=== PATIENT | female | born 1990 | race Caucasian/White ===

== ENCOUNTER 2018-01-07 12:58 | Day surgery (SDC) | payer OTHER ==
[2018-01-07 13:31] VITALS: BMI 39.1
--- NOTE | 2018-01-07 15:11 | SS ---
DATE OF EVALUATION: 01/07/2018 EVALUATING PHYSICIAN: John May M.D. ATTENDING PHYSICIAN: Donna Gee D.O. CHIEF COMPLAINT: Contractions at home. HISTORY OF PRESENT ILLNESS: Ms. Hankins is a 27-year-old white G2, P1-0-0-1, estimated date of conf inement of 01/12/2018 who presents complaining of intermittent contractions since early this morning. She denies ruptured membranes or vaginal bleeding. Of note is the fact that she has an induction s cheduled later next week with Dr. Gee. It appears that Dr. Gee may have stripped her membranes in the office late last week. PAST OBSTETRICAL HISTORY: Remarkable for a term vaginal delivery that was reportedly complicated by hemorrhage. PAST MEDICAL HISTORY: Herpes for which she is currently on acyclovir. CURRENT MEDICATIONS: vitamins and acyclovir. PAST SURGICAL HISTORY: None. ALLERGIES: No known allergies. SOCIAL HISTORY: She denies tobacco or alcohol use. REVIEW OF SYSTEM: She denies nausea, vomiting, fever, chills, vaginal bleeding or ruptured membranes . PHYSICAL EXAMINATION: VITAL SIGNS: Stable. She is afebrile. ABDOMEN: Soft, gravid and nontender. PELVIC EXAM: By the nurse shows her to be 1-2 cm with a vertex presenting which is apparently unchan ged from her exam in the office. heart rate tracing shows good beat to beat variability with n o decelerations. An occasional uterine contraction is seen, no regular contractions are noted. ASSESSMENT: 1. Term intrauterine . 2. No evidence of active labor. PLAN: At this time, the patient will be allowed to go home and rest. She was given complete labor p recautions and was told to return for frequent contractions, vaginal bleeding or decreased move ment. She voiced understanding of her discharge instructions and was sent home in good condition.
== END 2018-01-07 14:26 ==
LOC: L&D/OP 12:58
PROVIDERS: ATTEND Obstetrics & Gynecology
DX: O47.1 False labor at or after 37 completed weeks of gestation (principal); O98.513 Other viral diseases complicating pregnancy, third trimester; B00.9 Herpesviral infection, unspecified; Z79.2 Long term (current) use of antibiotics; Z79.899 Other long term (current) drug therapy; Z3A.00 Weeks of gestation of pregnancy not specified
CPT/HCPCS: 99283

== ENCOUNTER 2018-01-12 06:44 | Inpatient (IN) | payer OTHER ==
--- NOTE | 2018-01-11 19:46 | PDOC.LDHP ---
Labor and Delivery H&P Chief complaint: scheduled induction HPI: 27 yo @ 40w0d by 12 week sono who presents for elective IOL. Anteparturm course benign. Pt has h/o HSV, on valtrex for suppression and denies prodromal sx. Pt has h/o PPH with prior delivery s/p prolonged IOL. Current gestational age (weeks): 40 Due date: 01/12/18 Dating criteria: first trimester ultrasound Grav: 2 Para: 1 OB History Details: Term with PPH 2013 (due to prolonged labor?) Current complications: none, other (anemia) Abnormal US findings: No Current medications: pre-ramírez vitamins, iron Previous surgical history: none Allergies/Adverse Reactions: Allergies Allergy/AdvReac Type Severity Reaction Status Date / Time No Known Drug Allergies Allergy Unverified 07/10/16 15:41 Social history: none - Physical Exam Vital signs reviewed and normal: yes General: NAD Heart: RRR Lungs: nonlabored breathing Abdomen: gravid Extremeties: no edema FHT: category 1 (130s, mod libertad, +accels, no decels) [place] contractions every: irregular - Vaginal Exam cm dilated: 3 (cephalic, AROM clear ) Effacement: 50% Station: -2 - OB Labs Blood type: O RH: positive Antibody Screen: negative HIV: negative RPR: negative HEPSAg: negative 1 hour GCT: negative GBS: negative Urine drug screen: not done Rubella: non-immune Additional Labs: SSQ negative PPH work up negative - Assessment 40 week IUP Elective IOL Anemia H/O HSV H/O PPH - Plan Plan: admit to L&D, informed consent obtained, anesthesia consult for pain management -: Start pitocin for IOL No sx of HSV Anemia improved. Will plan to have uterotonics available at delivery.
[2018-01-12] MEDS ORDERED: Promethazine HCl 25 MG/ML VIAL IM PRN ×2 (07:07→11:30)
[2018-01-12] MEDS ORDERED: Diphenoxylate HCl/Atropine Tablet PO PRN (07:07)
[2018-01-12] MEDS ORDERED: Ibuprofen 800 MG TAB PO PRN (07:07)
[2018-01-12] MEDS ORDERED: Misoprostol 200 MCG TAB PR PRN (07:07)
[2018-01-12] MEDS ORDERED: Ondansetron HCl/PF 4 MG/2 ML Vial IVP PRN ×2 (07:07→11:30)
[2018-01-12] MEDS ORDERED: HYDROcodone/Acetaminophen 5/325 mg Tablet PO PRN (07:07)
[2018-01-12] MEDS ORDERED: Carboprost 250 MCG/ML AMP IM PRN (07:07)
[2018-01-12] MEDS ORDERED: LR 500 ML/Oxytocin 10 units 500 ML IV SCH (07:07)
[2018-01-12] MEDS ORDERED: Lidocaine 1% (PF) 30 ML VIAL SC PRN (07:07)
[2018-01-12] MEDS ORDERED: Methylergonovine 0.2 MG/ML VIAL IM PRN (07:07)
[2018-01-12] MEDS ORDERED: Acetaminophen 500 MG TAB PO PRN (07:07)
[2018-01-12] MEDS ORDERED: LR / Pitocin 40 units/1000 ml 1,000 ML IV PRN (07:07)
[2018-01-12 07:14] VITALS: BMI 40.9
[2018-01-12] MEDS: Lactated Ringer's 1,000 ML IV SCH ×4 (07:30→21:03)
[2018-01-12 07:52] LABS: Hemoglobin 11.8 g/dL (12.0-16.0); Mean Corpuscular HGB CONC 32.3 g/dL (32.0-36.0); Mean Corpuscular Hemoglobin 26.8 pg (27.0-31.0); Mean Corpuscular Volume 82.7 fl (81.0-99.0); Mean Platelet Volume 7.6 fL (7.4-10.4); Platelet Count 256 thou/uL (130-400); RBC Distribution Width 18.6 % (11.5-14.5); Red Blood Cell (RBC) Count 4.42 mill/uL (4.20-5.40); White Blood Cell (WBC) Count 13.8 thou/uL (4.8-10.8)
[2018-01-12 08:33] LABS: HBSAg Index 0.12 S/CO (0-0.99); HIV (1/2) Antibody/Antigen Non-Reactive (NonReactive); HIV 1/2 INDEX 0.05 S/CO (<1.00); Hep B Surf Ag Non-Reactive S/CO (NonReactive); Syphilis Antibody Nonreactive (Nonreactive); Syphilis Antibody Index 0.04 S/CO (<1.00 Non-Reactive)
[2018-01-12] MEDS ORDERED: Bupivacaine 0.5% 20 ML, fentaNYL Citrate/PF 400 MCG in Sodium Chloride 0.9% 72 ML EPIDURAL SCH (09:45)
[2018-01-12] MEDS ORDERED: DISCONTINUE ALL PREVIOUS NARCOTICS FS SCH (09:45)
[2018-01-12] MEDS ORDERED: Bupivacaine 0.75% W/DEXTROSE 8.25% 2 ML AMP ONE (10:01)
[2018-01-12] MEDS ORDERED: Bupivacaine 0.5% 10 ML VIAL ONE (11:06)
[2018-01-12] MEDS ORDERED: Fentanyl 100 MCG/2 ML VIAL ONE (11:06)
[2018-01-12] MEDS ORDERED: Fentanyl 100 MCG/2 ML VIAL I-THECAL ONE (11:29)
[2018-01-12] MEDS ORDERED: ePHEDrine/0.9% NaCl/PF SYRINGE 50 mg/10 ml SLOW IVP PRN (11:30)
[2018-01-12] MEDS ORDERED: Lactated Ringer's 500 ML IV PRN (11:30)
[2018-01-12] MEDS ORDERED: Fentanyl 4mcg/Marcaine 0.1% Cassette 100 ML EPIDURAL SCH (11:30)
[2018-01-12] MEDS ORDERED: Acetaminophen 325 MG TAB PO PRN (11:30)
[2018-01-12] MEDS ORDERED: Communication Order-Pharmacy FS SCH (11:30)
[2018-01-12] MEDS ORDERED: diphenhydrAMINE 50 MG/ML VIAL IVP PRN (11:30)
[2018-01-12] MEDS ORDERED: Eucerin (Mineral Oil/Petrolatum,White) 30 gm Jar TOP PRN (11:30)
[2018-01-12] MEDS ORDERED: Naloxone HCl 0.4 mg/ml Vial IVP PRN ×2 (11:30)
[2018-01-12] MEDS ORDERED: Bupivacaine 0.5% 10 ML VIAL EPIDURAL ONE (11:31)
[2018-01-12] MEDS ORDERED: diphenhydrAMINE 50 MG/ML VIAL IVP SCH (14:00)
--- NOTE | 2018-01-12 21:27 | PDOC.OPDEL ---
OB Operative/Delivery Note Delivery Dr/Surgeon: Donna Gee DO Pre-Delivery Diagnosis: elective induction Procedure/Post Delivery Dx: spontaneous vaginal delivery Weeks gestation: 39 Anesthesia: epidural - Findings A Sex: male - 1 min: 8 - 5 min: 9 - Additional Findings/Plan Placenta delivered: spontaneous Repaired Obstetrical Laceration: other (bilateral labials repaired) Estimated blood loss: 500 cc Compilations/Other Findings: Infant in cephalic presentation, CALDERON position. Methergine and cytotec given due to atony with resolution of bleeding/atony. Post delivery plan: routine recovery
[2018-01-13] MEDS ORDERED: Bisacodyl 10 MG SUPP PR PRN (00:03)
[2018-01-13] MEDS ORDERED: Methylergonovine 0.2 MG/ML VIAL IM PRN (00:03)
[2018-01-13] MEDS ORDERED: Milk Of Magnesia 30 ML UDCUP PO PRN (00:03)
[2018-01-13] MEDS ORDERED: Benzocaine/Menthol 20-0.5% 60 ML CAN TOP PRN (00:03)
[2018-01-13] MEDS ORDERED: LR / Pitocin 40 units/1000 ml 1,000 ML IV SCH (00:03)
[2018-01-13] MEDS ORDERED: Preparation H Ointment 28 GM TUBE PR PRN (00:03)
[2018-01-13] MEDS: Misoprostol 200 MCG TAB VAG SCH (00:37)
[2018-01-13] MEDS: Ibuprofen 800 MG TAB PO SCH ×3 (00:37→21:36)
[2018-01-13] MEDS: traMADol HCl 50 MG TAB PO PRN ×2 (03:34→20:25)
[2018-01-13 06:23] LABS: #Eosinphils 0.1 thou/uL (0.0-0.7); #Lymphocytes 1.9 thou/uL (1.20-3.40); #Monocytes 1.3 thou/uL (0.11-0.59); #Neutrophils 13.9 thou/uL (1.40-6.50); %Basophils 0.1 % (0.0-1.0); %Eosinophils 0.8 % (0.0-10.0); %Lymphocytes 10.9 % (21.0-51.0); %Monocytes 7.4 % (0.0-10.0); %Neutrophils 80.8 % (42.0-75.0); Anisocytosis SLIGHT = 6-15 cells (100X) (0-5/hpf); Band 7 % (5-11); Hemoglobin 10.3 g/dL (12.0-16.0); Lymphocytes 14 % (21-51); MDiff Complete? YES; Mean Corpuscular HGB CONC 32.1 g/dL (32.0-36.0); Mean Corpuscular Hemoglobin 26.8 pg (27.0-31.0); Mean Corpuscular Volume 83.5 fl (81.0-99.0); Mean Platelet Volume 7.8 fL (7.4-10.4); Monocytes 3 % (0-10); Neutrophil 74 % (42-75); Ovalocytes SLIGHT = 2-5 cells (100X) (0-1/hpf); PLT Morphology Comment Appears Adequate; Platelet Count 208 thou/uL (130-400); RBC Distribution Width 18.5 % (11.5-14.5); Reactive Lymphocytes 2 % (0-10); Red Blood Cell (RBC) Count 3.86 mill/uL (4.20-5.40); White Blood Cell (WBC) Count 17.2 thou/uL (4.8-10.8)
--- NOTE | 2018-01-13 08:53 | PDOC.PP ---
Post Progress Note Post Day #: 1 Subjective: Minimal lochia. Attempting to breast feed. No concerns. PO intake tolerated: yes Flatus: no Ambulation: yes Vital Signs (12 hours) Temp Pulse Resp BP 01/13/18 08:24 98.7 F 96 20 114/59 L 01/13/18 08:00 98.4 F 106 H 18 01/13/18 03:43 98.4 F 106 H 18 128/67 01/13/18 02:12 98.7 F 108 H 18 109/56 L 01/13/18 00:50 98.0 F 112 H 18 124/77 01/12/18 23:50 98.8 F 106 H 18 118/75 Weight Weight 231 lb - Physical Examination General: NAD Cardiovascular: RRR Respiratory: non-labored breathing Abdominal: no distention, appropriately TTP Deviation from normal: below umbilicus Extremities: negative homans (B) Neurological: no gross focal deficits Psychiatric: A&Ox3 Result Diagrams: 01/13/18 04:55 Additional Labs: Post Labs Blood Type O POSITIVE 01/12/18 07:49 Hep Bs Antigen Non-Reactive S/CO (NonReactive) 01/12/18 07:49 (1) Vaginal delivery Code(s): O80 - ENCOUNTER FOR FULL-TERM UNCOMPLICATED DELIVERY Status: Acute - Assessment/Plan PPD1 VSSAF Doing well. consult. Plan for d/c tomorrow due to late delivery. Anemia stable and no further heavy bleeding since delivery. Tachycardia has resolved.
[2018-01-13] MEDS ORDERED: Measles/Mumps/Rubella 10 MCG/0.5 ML VIAL SC ONE (09:00)
[2018-01-13] MEDS: Ferrous Sulfate 325 MG TAB PO SCH (09:19)
[2018-01-13] MEDS: Docusate Calcium (SURFAK) 240 MG CAP PO SCH ×2 (09:20→21:36)
[2018-01-13] MEDS: Prenatal Vitamin 1 TAB PO SCH (09:20)
[2018-01-14] MEDS: Ferrous Sulfate 325 MG TAB PO SCH ×2 (00:14→09:14)
[2018-01-14] MEDS: Misoprostol 200 MCG TAB VAG SCH (01:07)
--- NOTE | 2018-01-14 04:22 | PDOC.PP ---
Post Progress Note Post Day #: 2 Subjective: No new complaints PO intake tolerated: yes Flatus: yes Ambulation: yes Vital Signs (12 hours) Temp Pulse Resp BP 01/13/18 19:50 97.4 F L 96 20 120/66 01/13/18 17:54 98.3 F 92 20 122/74 Weight Weight 231 lb - Physical Examination General: NAD Cardiovascular: no m/r/g Respiratory: clear to auscultation bilaterally Abdominal: + bowel sounds, lochia, no distention, appropriately TTP Extremities: negative homans (B) Neurological: no gross focal deficits Psychiatric: A&Ox3, normal affect Result Diagrams: 01/13/18 04:55 Additional Labs: Post Labs Blood Type O POSITIVE 01/12/18 07:49 Hep Bs Antigen Non-Reactive S/CO (NonReactive) 01/12/18 07:49 (1) state Code(s): Z39.2 - ENCOUNTER FOR ROUTINE FOLLOW-UP Status: Acute (2) Vaginal delivery Code(s): O80 - ENCOUNTER FOR FULL-TERM UNCOMPLICATED DELIVERY Status: Acute - Assessment/Plan Doing well s/p on 01/12. Ok for discharge home. RX per Dr Fraire in chart. OB Summary form completed
--- NOTE | 2018-01-14 04:24 | PDOC.EVN ---
Event Note - Event Note Event Note: DISCHARGE NOTE Admit: 01/12/18 Discharge 01/14/18 Procedure: Vaginal delivery Patient seen by me on day of discharge. Please see completed OB summary sheet in record.
[2018-01-14] MEDS: Ibuprofen 800 MG TAB PO SCH (05:53)
[2018-01-14] MEDS: Prenatal Vitamin 1 TAB PO SCH (09:14)
[2018-01-14] MEDS: Docusate Calcium (SURFAK) 240 MG CAP PO SCH (09:14)
[2018-01-14] MEDS: traMADol HCl 50 MG TAB PO PRN (09:14)
[2018-01-14 09:47] VITALS: BP 109/68; TEMP 97.8
== END 2018-01-14 14:40 | disposition home or self-care (01) | DRG 775 ==
LOC: L&D 06:44 → 3SW 01-13 00:12
PROVIDERS: ADMIT Obstetrics & Gynecology; ATTEND Obstetrics & Gynecology
PROC: 10E0XZZ Delivery of Products of Conception, External Approach (ICD-10-PCS; principal; 2018-01-12)
PROC: 0HQ9XZZ Repair Perineum Skin, External Approach (ICD-10-PCS; 2018-01-12)
PROC: 10907ZC Drainage of Amniotic Fluid, Therapeutic from Products of Conception, Via Natural or Artificial Opening (ICD-10-PCS; 2018-01-12)
PROC: 3E033VJ Introduction of Other Hormone into Peripheral Vein, Percutaneous Approach (ICD-10-PCS; 2018-01-12)
DX: Z37.0 Single live birth; O70.0 First degree perineal laceration during delivery; Z3A.40 40 weeks gestation of pregnancy
CPT/HCPCS: 36415; 51702; 85025; 85027; 86780; 86850; 86900; 86901; 87340; 87389; 90707; J1200; J2001; J2210; J3010; J3490; J7050; J7120

== ENCOUNTER 2018-05-21 19:10 | Inpatient (IN) | payer MEDICAID, OTHER ==
[~2018-05-21 19:10] MED LIST: Glycopyrrolate 0.2 MG/ML 5 ML SYRINGE ONE; Lidocaine 1% PF 5 ML VIAL ONE; Ondansetron HCl/PF 4 MG/2 ML Vial ONE; PROPOFOL 200 MG/20 ML VIAL ONE; Succinylcholine Chloride 20 MG/ML 10 ml SYRINGE FS ONE
[2018-05-21] MEDS ORDERED: Ondansetron HCl/PF 4 MG/2 ML Vial ONE ×2 (19:20→19:44)
[2018-05-21 19:54] LABS: #Basophils 0.1 thou/uL (0.0-0.2); #Eosinphils 0.1 thou/uL (0.0-0.7); #Lymphocytes 4.1 thou/uL (1.20-3.40); #Monocytes 0.6 thou/uL (0.11-0.59); %Eosinophils 0.6 % (0.0-10.0); %Lymphocytes 34.5 % (21.0-51.0); %Monocytes 4.9 % (0.0-10.0); %Neutrophils 58.9 % (42.0-75.0); Mean Corpuscular HGB CONC 33.4 g/dL (32.0-36.0); Mean Corpuscular Hemoglobin 26.9 pg (27.0-31.0); Mean Corpuscular Volume 80.6 fL (78.0-98.0); Platelet Count 349 thou/uL (130-400); RBC Distribution Width 14.6 % (11.5-14.5); Red Blood Cell (RBC) Count 4.83 mill/uL (4.20-5.40); White Blood Cell (WBC) Count 11.8 thou/uL (4.8-10.8)
[2018-05-21 20:15] LABS: ALT (SGPT) 10 U/L (8-55); AST (SGOT) 10 U/L (5-34); Albumin 4.3 g/dL (3.5-5.0); Alkaline Phosphatase 73 U/L (40-150); Anion Gap 16 mmol/L (10-20); BUN (Urea Nitrogen) 12 mg/dL (7.0-18.7); Bilirubin, Total 0.2 mg/dL (0.2-1.2); Calc. Creatinine Clearance 0 mL/min (70-130); Calcium 9.4 mg/dL (7.8-10.44); Carbon Dioxide 24 mmol/L (22-29); Chloride 103 mmol/L (98-107); Estimated GFR-MDRD Greater than 90; Globulin 3.6 g/dL (2.4-3.5); Glucose 109 mg/dL (70-105); Lipase 22 U/L (8-78); Potassium 3.7 mmol/L (3.5-5.1); Protein, Total 7.9 g/dL (6.0-8.3); Sodium 139 mmol/L (136-145)
[2018-05-21 21:37] LABS: Bilirubin Negative (Negative); Blood, Urine Negative (Negative); Clarity CLEAR (Clear); Glucose, Urine (Dipstick) Negative (Negative); Leukocyte Negative (Negative); Nitrite Negative (Negative); Pregnancy Test - Urine (BHCG) Negative (Negative); Pregu Control Background? CLEAR/WHITE (CLR/WHITE); Pregu Control Bar Appear? YES (CONTROL BAR); Protein, Urine (Dipstick) Negative (Neg-Trace); Specific Gravity 1.025 (1.002-1.036); Specific Gravity, Urine 1.025 (1.002-1.036); Urobilinogen 0.2 mg/dL (0.2-1.0)
[2018-05-21] MEDS ORDERED: Piperacillin/Tazobactam 3.375 GM VIAL ONE (21:38)
[2018-05-21] MEDS ORDERED: Piperacillin/Tazobactam 4.5 GM VIAL ONE (21:41)
--- NOTE | 2018-05-21 21:42 | ULT ---
RIGHT UPPER QUADRANT ULTRASOUND: Date: 05-21-18 Comparison: None. History: Right upper quadrant pain. Technique: Multiplanar grayscale sonographic imaging of the right upper quadrant provided. FINDINGS: The imaged pancreas is unremarkable. The tail is obscured by bowel gas. No focal liver lesion or intr ahepatic biliary dilatation is noted. The gallbladder wall is thickened, measuring 6-7 mm. There are numerous stones within the gallbladder lumen. The finished carpet inspector reports a positive Goetz's sign. The common duct measures 5 mm, upper limits of normal. Right kidney measures 10.6 cm craniocaudal dimension and demonstrates no stone, hydroneph rosis or mass. IMPRESSION: Cholelithiasis with gallbladder wall thickening and positive Goetz's sign, consistent with acute cho lecystitis in the proper clinical setting. POS: [facility]
--- NOTE | 2018-05-21 23:01 | HP ---
DATE OF ADMISSION: 05/21/2018 HISTORY OF PRESENT ILLNESS: Ms. Hankins is a 27-year-old G2, P[facility]. Patient reported insidious onset epigastric to right upper quadrant abdominal pain, which started approximately 1800 hours, which was about 2 hours after dinner. Pain was rated at 10/10, huma cribed as sharp and associated with three bouts of nonbilious emesis. Patient denied any fevers or c hills. She reported similar pain approximately 1 month ago after eating as well. At that time, the pain resolved spontaneously and was not as severe as the pain which brought her to the emergency depa rtment today. PAST MEDICAL HISTORY: Patient denies any previous medical problems. PAST SURGICAL HISTORY: She denies any previous surgeries. 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 She admits to smoking 3 cigarettes a week. Admits to occasional intake of ethanol in moderate amounts and denies any illicit drug abuse. FAMILY HISTORY: Notable for diabetes mellitus in her mother. Maternal aunt has heart disease. Vari ous members of the extended family have essential hypertension in both sides of mother's side. There is no family history of cancer. PREHOSPITAL MEDICATION: Includes multiple vitamins and occasional ibuprofen. ALLERGIES: Patient denies any known drug allergies. REVIEW OF SYSTEMS: A 10-point review of systems essentially unremarkable except for as stated in pas t medical history and chief complaint. PHYSICAL EXAMINATION: GENERAL: This reveals a 27-year-old normally developed woman who is 4 months' . Patient a ppears to be in no acute distress at the time of my evaluation. VITAL SIGNS: Includes blood pressure 125/55, pulse 74, respiratory rate is 16, temperature 98.3 degr ees Fahrenheit, oxygen saturation is 98% on room air. HEENT: Reveals normocephalic and atraumatic. Pupils are equal, round, and reactive to light and acc ommodation. Extraocular muscles are intact bilaterally. No sclerae icterus is present. Oral mucosa is pink and moist. No lesions are noted. NECK: Supple. No palpable lymphadenopathy or thyromegaly present. CARDIOVASCULAR: Reveals regular rate and rhythm. No murmurs or gallops auscultated. LUNGS: Clear to auscultation bilaterally. Breathing regular and unlabored. ABDOMEN: Soft and moderately distended . Patient has moderate right upper quadrant tender ness to palpation. She has no gross rebound tenderness present. EXTREMITIES: Reveals 2+ radial and pedal pulses bilaterally. No ankle edema present. NEUROLOGIC: Reveals no focal deficits present. PERTINENT LABORATORY FINDINGS: Today include a CBC with 11,800 white blood cells, hemoglobin and hem atocrit 13.0 and 38.9 respectively, platelet count is 249,000. Metabolic profile: Sodium 139, potas sium is 3.7, chloride is 103, bicarbonate is 24, BUN 12, creatinine 0.73, glucose 109. Total bilirub in 0.2, AST and ALT are both normal at 10 and 10 respectively. Serum lipase is also normal at 22. I have personally reviewed abdominal ultrasound, which is remarkable for multiple intraluminal gallsto marti. The patient has gallbladder wall thickening at 6.6 mm. Common bile duct is dilated for this pa tient's age at 5.2 mm in diameter. IMPRESSION: 1. Acute cholecystitis with cholelithiasis. 2. Rule out choledocholithiasis. Above findings and plan has been discussed with the patient, her and her mother at bedside. They indicate understanding of information provided. I have offered the patient two options: one is conservative management with bland diet and hopefully that the pain does not recall. Patient is unwi lling to take that option. This is a second option, which is to proceed with laparoscopic cholecyste ctomy with intraoperative cholangiogram. The patient after discussion with the family elected to pro ceed with laparoscopic cholecystectomy with intraoperative cholangiogram. I have advised the patient of the risk and benefits of the proposed surgery. Risks include, but not limited to bleeding, infec tion, injury to bile duct or surrounding structures. Patient and family have indicated understanding of information given. I have answered all their questions. Patient has granted consent for this ad mission and surgical intervention.
[2018-05-21] MEDS ORDERED: Bupivacaine/Epinephrine 0.25% 30 ML VIAL ONE (23:14)
[2018-05-21] MEDS ORDERED: Iothalamate Meglumine 60% 50 ML VIAL FS ONE (23:14)
[2018-05-21] MEDS ORDERED: Fentanyl 100 MCG/2 ML VIAL ONE (23:34)
[2018-05-21] MEDS ORDERED: Midazolam HCl 2 mg/2 ml Vial ONE (23:34)
[2018-05-22] MEDS ORDERED: SUGAMMADEX SODIUM 200 MG/2 ML VIAL ONE (01:19)
[2018-05-22] MEDS ORDERED: Ondansetron HCl/PF 4 MG/2 ML Vial IVP PRN ×2 (01:32→01:40)
[2018-05-22] MEDS ORDERED: Promethazine HCl 25 MG/ML VIAL IM PRN ×2 (01:32→01:40)
[2018-05-22] MEDS ORDERED: Promethazine HCl 25 MG/ML VIAL SLOW IVP PRN (01:32)
[2018-05-22] MEDS ORDERED: Fentanyl 100 MCG/2 ML VIAL ONE ×2 (01:34→01:58)
[2018-05-22] MEDS ORDERED: Ketorolac Tromethamine 30 MG/ML VIAL ONE (01:34)
[2018-05-22] MEDS ORDERED: Meperidine HCl/PF 25 MG/ML VIAL ONE (01:36)
[2018-05-22] MEDS ORDERED: hydrALAZINE 20 MG/ML VIAL SLOW IVP PRN (01:40)
[2018-05-22] MEDS ORDERED: Dextrose 50% Abboject 50 ML SYRINGE SLOW IVP PRN (01:40)
[2018-05-22] MEDS ORDERED: Promethazine HCl 25 MG/ML VIAL ONE (01:40)
[2018-05-22] MEDS ORDERED: Mag-Al 1200 mg/1200 mg/30 ML UDCUP PO PRN (01:40)
[2018-05-22] MEDS ORDERED: Calcium Carbonate 500 MG ChewTAB PO PRN (01:40)
[2018-05-22] MEDS ORDERED: Dextrose 5% in Water 1,000 ML IV PRN (01:40)
[2018-05-22] MEDS ORDERED: Acetaminophen 325 MG TAB PO SCH (01:45)
[2018-05-22] MEDS ORDERED: Ibuprofen 800 MG TAB PO PRN (01:45)
[2018-05-22] MEDS ORDERED: traMADol HCl 50 MG TAB PO PRN (01:45)
--- NOTE | 2018-05-22 01:54 | OP ---
DATE OF OPERATION: 05/22/2018 PREOPERATIVE DIAGNOSES: Acute cholecystitis and cholelithiasis. PREOPERATIVE DIAGNOSES: Acute cholecystitis and cholelithiasis. OPERATION PERFORMED: Laparoscopic cholecystectomy with intraoperative cholangiogram. SURGEON: Chirag Trejo D.O. ANESTHESIA: General endotracheal. ESTIMATED BLOOD LOSS: 5 mL. FLUIDS GIVEN: 1200 mL crystalloids. SPONGE AND INSTRUMENT COUNT: Certified as correct x2. COMPLICATIONS: None apparent at the time of operation. INDICATIONS FOR OPERATION: A 27-year-old G2, P2 four months' , presented to the emergency department and with insidious onset epigastric to right upper quadrant abdominal pain of recurrent in nature. Clinical radiographic examination was consistent with acute cholecystitis with cholelithias is. Common bile duct was also dilated for this patient's age. Therefore, the patient was brought to the operating room for laparoscopic cholecystectomy and intraoperative cholangiogram. Findings are consistent with gallbladder in the usual anatomic location completely encased by omental adhesions. Cholangiogram revealed normal ductal anatomy, no filling defects. DESCRIPTION OF PROCEDURE: Informed consent obtained from the patient who was brought to the operatin g room and placed in supine position. Following general anesthesia, the abdomen is sterilely prepped and draped in usual fashion. The skin below the umbilicus was infiltrated with 0.25% Marcaine with epinephrine. A small curvilinear infraumbilical incision is made using 11-scalpel. Umbilical stalk grasped with Shimon elevated. Veress needle was inserted through the incision, through which the abd omen was insufflated with 3.5 liters of CO2 gas. Intraabdominal pressure noted at 2 mmHg. Following abdominal insufflation, Veress needle was removed and a 5-mm trocar was then inserted using the Visi port under laparoscopy. Laparoscopy confirmed proper placement of the port, no injuries to underlyin g structures. Additional laparoscopy reveals gallbladder in the usual anatomic location completely e ncased by omental adhesions. Under laparoscopy, a 12 mm epigastric and two 5-mm right lateral subcos chinmay ports were placed after the overlying skin were infiltrated with 0.25% Marcaine with epinephrine and appropriate incision was made. Patient was then placed in a reverse Trendelenburg position, rota sheree to her left. I introduced [place] dissector with cautery to take down omental adhesions to reve al the fundus of the gallbladder. The [employer] grasper introduced through the right lateral subcosta l port, grasping the fundus of the gallbladder, which was elevated cephalad. Omental adhesions were then carefully dissected from the remainder of the gallbladder. A second-Prestige grasper was introd uced through the right medial subcostal port, grasping the Moore's pouch which was retracted latera lly. An anterior coursing cystic artery was dissected free from surrounding structures and divided b etween clips. Two clips were applied proximally and one clip at the junction of the cystic artery an d gallbladder. Cystic duct was then dissected free from surrounding structures. I applied a single clip at the junction of the cystic duct and gallbladder. Cystotomy was made proximal to the securing clip on the cystic duct. I introduced cholangiocatheter, which was first flushed with saline. Cath eter inserted into the cystic ductal lumen and secured with a single clip. Cholangiogram was then co mpleted using 7 mL of full-strength Conray contrast. Total fluoroscopy time was 3 seconds. Normal d uctal anatomy is noted. No filling defects or obstruction. Following this cholangiography, the securing clip was removed and catheter was removed from the perit woodruff cavity. The cystic duct was then divided between clips, applying two clips proximally. Gallbl adder itself was removed from the liver bed using cautery with good hemostasis. Gallbladder is deliv ered of the abdominal cavity using an EndoCatch. Operative site was again reexamined for good hemost asis. All clips remain in place, no bile stains present. Finding no other pathology, laparoscopy wa s terminated. Fascia of the epigastric port was closed using 0-Vicryl suture and Endo closure device under laparoscopy. Abdomen was desufflated. All ports and instruments removed and accounted for. Skin incisions are then closed using 4-0 Monocryl suture in subcuticular fashion. Dermabond was appl ied over incisional closure. Patient tolerated the operation without any apparent complication and w as returned to recovery room in satisfactory condition.
[2018-05-22] MEDS: traMADol HCl 50 MG TAB PO PRN ×3 (02:43→16:12)
[2018-05-22] MEDS: Lactated Ringer's 1,000 ML IV SCH ×2 (02:44→11:25)
[2018-05-22 03:35] VITALS: BMI 35.4
[2018-05-22] MEDS: Acetaminophen 500 MG TAB PO SCH ×2 (06:17→12:04)
--- NOTE | 2018-05-22 08:35 | RAD ---
INTRAOPERATIVE CHOLANGIOGRAM FLUOROSCOPY: HISTORY: Cholecystitis. FINDINGS: Intraoperative fluoroscopy was provided for cholangiogram as performed by Dr. Trejo. Spot fluoroscop ic images show metallic clips over the cystic duct remnant. Opacification of a nondilated common radha t and central hepatic biliary system is apparent without filling defects. Contrast has passed into t he duodenum. Fluoro time=1 second. POS: [facility]
[2018-05-22] MEDS ORDERED: Famotidine/PF 20 mg/2ml Vial SLOW IVP SCH (09:00)
[2018-05-22] MEDS ORDERED: Famotidine 20 MG TAB PO SCH (09:00)
[2018-05-22 12:25] VITALS: BP 123/80; TEMP 97.5
== END 2018-05-22 16:24 | disposition home or self-care (01) | DRG 419 ==
LOC: ERS 19:10 → SURG A 23:50
PROVIDERS: ADMIT Surgery; ATTEND Surgery
PROC: 0FT44ZZ Resection of Gallbladder, Percutaneous Endoscopic Approach (ICD-10-PCS; principal; 2018-05-22)
PROC: BF131ZZ Fluoroscopy of Gallbladder and Bile Ducts using Low Osmolar Contrast (ICD-10-PCS; 2018-05-22)
DX: K80.00 Calculus of gallbladder with acute cholecystitis without obstruction (principal); F17.210 Nicotine dependence, cigarettes, uncomplicated
CPT/HCPCS: 36415; 47532; 76705; 80053; 81003; 81025; 83690; 85025; 88304; 93005; 96365; 96374; 96375; J0131; J1885; J2001; J2175; J2250; J2270; J2405; J2543; J2550; J2704; J3010; Q9961

== ENCOUNTER 2018-09-15 12:24 | Emergency (ER) | payer MEDICAID ==
[2018-09-15] MEDS ORDERED: Acetaminophen 500 MG TAB ONE (12:59)
[2018-09-15] MEDS ORDERED: Benzonatate 100 MG CAP ONE (13:00)
[2018-09-15] MEDS ORDERED: Dexamethasone 10 MG/ML VIAL ONE (13:00)
--- NOTE | 2018-09-15 13:38 | RAD ---
2 VIEW CHEST: Date: 09/15/18 COMPARISON: 06/29/17. CLINICAL HISTORY: Cough with congestion, fever and pain. FINDINGS: Mild interstitial opacification at the superolateral left lung is new from prior exam. Right lung is clear. Cardiac silhouette is stable. No effusion or pneumothorax. IMPRESSION: Mild focal opacity predominantly interstitial appearing at the superolateral left lung. This may rela te to an atypical pneumonia in light of the patient's history. As necessary, continued imaging surveillance may be performed. POS: [facility]
== END 2018-09-15 13:28 | disposition home or self-care (01) ==
LOC: ERS 12:24
DX: J18.9 Pneumonia, unspecified organism (principal); J01.90 Acute sinusitis, unspecified; F17.210 Nicotine dependence, cigarettes, uncomplicated
CPT/HCPCS: 71046; J1100

== ENCOUNTER 2020-04-09 13:41 | Emergency (ER) | payer MEDICAID, OTHER ==
[2020-04-10 14:16] LABS: SARS-CoV-2 MS2 Positive; SARS-CoV-2 N Gene Negative; SARS-CoV-2 S Gene Negative; SARS-CoV-2 orf1ab Negative
== END 2020-04-09 14:55 | disposition home or self-care (01) ==
LOC: ERS 13:41
DX: Z20.828 Contact with and (suspected) exposure to other viral communicable diseases (principal); F17.210 Nicotine dependence, cigarettes, uncomplicated
CPT/HCPCS: 87635; 99283; U0003